=== PATIENT | female | born 1950 | race Caucasian/White ===

== ENCOUNTER 2025-01-20 19:32 | Emergency (ER) | payer MEDICARE ==
[~2025-01-20 19:32] MED LIST: Iopamidol 370 76% 100 ML VIAL ONE
[2025-01-20 20:03] LABS: #Basophils Less than 0.03 10x3/uL (0.0-0.2); #Eosinophils 0.15 10x3/uL (0.0-0.5); #Monocytes 0.93 10x3/uL (0.0-1.1); #Neutrophils 5.15 10x3/uL (1.5-8.4); %Basophils 0.2 % (0.0-2.0); %Eosinophils 1.5 % (0.0-6.0); %Lymphocytes 35.7 % (18.0-47.0); %Monocytes 9.5 % (0.0-10.0); %Neutrophils 52.9 % (40.0-75.0); Hematocrit 40.2 % (34.9-44.5); Hemoglobin 13.0 g/dL (12.0-15.5); Mean Corpuscular Hemoglobin 30.0 pg (27.0-33.0); Mean Corpuscular Volume 92.8 fL (81.6-98.3); Platelet Count 223 10x3/uL (150-450); Red Blood Cell (RBC) Count 4.33 10x6/uL (3.90-5.03); White Blood Cell (WBC) Count 9.75 10x3/uL (3.5-10.5)
[2025-01-20 20:13] LABS: INR-International Normal Ratio 1.0; PTT 25.1 sec (22.0-33.0); Prothrombin Time 10.7 sec (9.5-12.1)
[2025-01-20 20:16] LABS: ALT (SGPT) 10 U/L (Less than 34); AST (SGOT) 19 U/L (11-34); Albumin 3.7 g/dL (3.1-4.5); Alkaline Phosphatase 66 U/L (40-110); Anion Gap 15 mmol/L (10-20); BUN (Urea Nitrogen) 27 mg/dL (9.8-20.1); Bilirubin, Total 0.3 mg/dL (0.3-1.2); Calc. Creatinine Clearance 0 mL/min (70-130); Calcium 8.6 mg/dL (7.8-10.44); Carbon Dioxide 22 mmol/L (23-31); Chloride 108 mmol/L (98-107); Globulin 2.9 g/dL (2.4-3.5); Glucose 135 mg/dL (83-110); Potassium 4.3 mmol/L (3.5-5.1); Sodium 141 mmol/L (136-145)
[2025-01-20 20:21] LABS: Troponin I 0.012 ng/mL (< 0.028)
[2025-01-20 22:07] LABS: Glucose, Urine (Dipstick) Normal (Negative); Leukocyte Negative (Negative); Protein, Urine (Dipstick) Negative (Neg-Trace); Specific Gravity, Urine 1.010 (1.005-1.030)
[2025-01-20 22:18] LABS: Bacteria/HPF None Seen HPF (None Seen); CAUTI Indications for Culture Alt mental st,lethar; RBC/HPF None Seen HPF (0-3); WBC/HPF None Seen HPF (0-3)
[2025-01-20 22:19] LABS: Urine Culture Reflex No No
== END 2025-01-20 22:47 | disposition home or self-care (01) ==
LOC: CSHERS 19:32
DX: T67.5XXA Heat exhaustion, unspecified, initial encounter (principal); E86.0 Dehydration; R55 Syncope and collapse; I10 Essential (primary) hypertension
CPT/HCPCS: 36415; 36416; 70450; 70496; 70498; 80053; 81001; 82550; 83605; 83880; 84484; 85025; 85610; 85730; 93005; 96360; Q9967